=== PATIENT | male | born 2000 ===

== ENCOUNTER → 2022-05-16 11:37 | Outpatient (BNVA) | payer OTHER, SELFPAY | PROVIDERS: PCP Physician Assistant; Visit Provider Internal Medicine | DX: S86.111A Strain of other muscle(s) and tendon(s) of posterior muscle group at lower leg level, right leg, initial encounter (principal); W17.89XA Other fall from one level to another, initial encounter | CPT/HCPCS: 99202 ==

== ENCOUNTER → 2022-05-17 15:06 | Outpatient (BNVA) | payer OTHER, SELFPAY | PROVIDERS: PCP Physician Assistant; Visit Provider Internal Medicine | DX: S86.111A Strain of other muscle(s) and tendon(s) of posterior muscle group at lower leg level, right leg, initial encounter (principal); W17.89XA Other fall from one level to another, initial encounter | CPT/HCPCS: 99213 ==

== ENCOUNTER → 2024-12-25 08:16 | Outpatient (BNVA) | payer OTHER, SELFPAY | PROVIDERS: PCP Physician Assistant; Visit Provider Physician Assistant | DX: Z00.00 Encounter for general adult medical examination without abnormal findings (principal); H93.13 Tinnitus, bilateral; E66.811 Obesity, class 1 | CPT/HCPCS: 96127 ==

== ENCOUNTER 2024-12-27 08:50 | Outpatient (REF) | payer OTHER, SELFPAY ==
--- OUTSIDE RECORDS SUMMARY | 2024-12-27 09:08 | XMS_ITS ---
Author Name [facility] Organization Unknown History of Medication Use Medication Directions Dispensed Refills Start Date End Date Stat No medication inform ation recorded active Problems Problem Status Onset Date Problem Type Date of Resoluti on Source Low back pain, unspecified active 2024-02-04 ProblemAct [facility] Viral intestinal infection, unspecified active 2024-02-05 ProblemAct [facility] Diarrhea, unspecified active 2024-02-04 ProblemAct [facility]
[2024-12-27 09:40] LABS: Hematocrit 47.9 % (42.0-52.0); Hemoglobin 16.1 g/dl (14.0-18.0); Mean Corpuscular HGB Conc 33.6 g/dl (31.0-36.0); Mean Corpuscular Hemoglobin 29.1 pg (27.0-33.0); Mean Corpuscular Volume 86.6 fL (80.0-98.0); Platelet Count 163 X10*3/uL (160-400); Red Blood Count 5.53 X10*6/uL (4.60-5.80); Red Cell Distribution Width 12.2 % (11.0-16.0); White Blood Count 6.1 X10*3/uL (4.8-10.8)
[2024-12-27 10:10] LABS: Alanine Aminotransferase 19 U/L (0-40); Albumin Level 4.4 g/dL (3.5-5.0); Alkaline Phosphatase 74 U/L (39-117); Anion Gap 12 (12-20); Aspartate Amino Transferase 28 U/L (5-37); Bilirubin Total 0.6 mg/dL (0.0-1.0); Blood Urea Nitrogen 19 mg/dL (9-16); Calcium 9.7 mg/dL (8.4-10.2); Carbon Dioxide 28 mmol/L (22-29); Chloride 105 mmol/L (96-108); Estimated Glomerular Filt Rate > 60; Glucose Fasting 86 mg/dL (60-99); Potassium 4.7 mmol/L (3.3-5.1); Sodium 140 mmol/L (135-145); Total Protein 7.4 g/dL (6.5-8.0)
== END 2024-12-27 08:51 | disposition home or self-care (01) ==
LOC: HO.LAB 08:50
PROVIDERS: PCP Physician Assistant; Visit Provider Physician Assistant
DX: Z13.1 Encounter for screening for diabetes mellitus (principal)
CPT/HCPCS: 36415; 80053; 85027

== ENCOUNTER 2025-11-17 13:47 | Outpatient (AMB) | payer OTHER, SELFPAY ==
--- NOTE | 2025-11-17 13:50 | A.OFFPC_ITS ---
Vital Signs 11/17/25 13:51 Height 5 ft 7 in Weight 231 lb 4 oz BMI 36.2 BP 120/68 Blood Pressure Location Lt brachial Position Sitting Respiration 12 Pulse 74 Pulse Source Pulse Oximeter Temp 97.2 F Temp Source Tympanic Pulse Oximetry (%) 99 Oxygen Delivery Method Room Air Intake Visit [facility]: [facility] Allergies amoxicillin (AMOXICILLIN) Allergy (Mild, Verified 11/17/25 13:54) RASH Medication List - Last Reconciled 11/17/25 by Addie Miller MD No Known Home Meds Tobacco use date assessed: 12/25/24 Dental Screening Dental Screen Date: 12/25/24 HPI HPI Comments History of Present Illness Details The patient is a 25 year old male presenting for a general check-up and to request laboratory studies. He was last seen for an annual physical in November of this year, and his labs at that time were normal. Since his last visit, he has experienced some weight gain. The patient has a history of significant weight loss, having previously reduced his weight from 260 lbs to 170 lbs by modifying his diet and maintaining a high level of physical activity. He currently goes to the gym and reports occasional associated joint pain or soreness, which he considers normal. [facility] Surgical History History of tonsillectomy History of appendectomy Family History (Updated 12/25/24 @ 08:37 by Kwasi Lund PA-C) Father Hodgkin lymphoma Paternal Grandmother Bone cancer Social History (Updated 12/25/24 @ 08:37 by Kwasi Lund PA-C) Housing: House Alcohol intake: current Alcohol intake frequency: a few times a week Alcohol type: beer Patient Tobacco Use Status: Former Tobacco user Tobacco use type: Cigarette e-Cigarette/Vaping Use: Never Used Second Hand Smoke Exposure: Yes service: No Current occupational status: employed Current occupation: [employer] Cognitive needs: No Hearing needs: Yes Vision needs: No Questionnaire Thrive Questionnaire Date Thrive assessed: 12/25/24 I am a: Patient What is your living situation today?: I have a steady place to live Within the past 12 months, did the food you bought not last and you didn't have the money to get more?: Never true Within the past 12 months, did you worry whether your food would run out before you got money to buy more?: Never true Do you have trouble paying for medicines?: No Do you have trouble getting transportation to medical appointments?: No Do you have trouble paying your heating and electricity bill?: No Do you have trouble taking care of your child, family member or friend?: No Do you have trouble with day-to-day activities such as bathing, preparing meals, shopping, managing finances, etc.?: No Are you currently unemployed and looking for a job?: No Are you interested in more education?: Yes Currently or been in a relationship where the following occur: No concerns reported THRIVE Score: 0 DEE-7 AMB Questionnaire DEE-7 Date DEE - 7 assessed: 12/25/24 Source: Developed by Drs. Silvestre Pina, Ashleigh Gloria, Todd Edgar and colleagues, with an educational susannah from [employer]. Review of Systems Const Details: Positives besides what was mentioned in HPI are in BOLD Constitutional: No Weight Change, No Fever, No Chills, No Night Sweats, No Fatigue, No Malaise ENT/Mouth: No Hearing Changes, No Ear Pain, No Nasal Congestion, No Sinus Pain, No Hoarseness, No sore throat, No Rhinorrhea, No Swallowing Difficulty Eyes: No Eye Pain, No Swelling, No Redness, No Foreign Body, No Discharge, No Vision Changes Cardiovascular: No Chest Pain, No SOB, No PND, No Dyspnea on Exertion, No Orthopnea, No Claudication, No Edema, No Palpitations Respiratory: No Cough, No Sputum, No Wheezing, No Smoke Exposure, No Dyspnea Gastrointestinal: No Nausea, No Vomiting, No Diarrhea, No Constipation, No Pain, No Heartburn, No Anorexia, No Dysphagia, No Hematochezia, No Melena, No Flatulence, No Jaundice Genitourinary: No Dysmenorrhea, No DUB, No Dyspareunia, No Dysuria, No Urinary Frequency, No Hematuria, No Urinary Incontinence, No Urgency, No Flank Pain, No Urinary Flow Changes, No Hesitancy Musculoskeletal: No Arthralgias, No Myalgias, No Joint Swelling, No Joint Stiffness, No Back Pain, No Neck Pain, No Injury History Skin: No Skin Lesions, No Pruritis, No Hair Changes, No Breast/Skin Changes, No Nipple Discharge Neuro: No Weakness, No Numbness, No Paresthesias, No Loss of Consciousness, No Syncope, No Dizziness, No Headache, No Coordination Changes, No Recent Falls Psych: No Anxiety/Panic, No Depression, No Insomnia, No Personality Changes, No Delusions, No Rumination, No SI/HI/AH/VH, No Social Issues, No Memory Changes, No Violence/Abuse Hx., No Eating Concerns Heme/Lymph: No Bruising, No Bleeding, No Transfusions History, No Lymphade nopathy Endocrine: No Polyuria, No Polydipsia, No Temperature Intolerance Physical exam (Primary Care) Vital Signs: Last Vital Signs Temp 97.2 F 11/17/25 13:51 Pulse 74 11/17/25 13:51 Resp 12 11/17/25 13:51 BP 120/68 11/17/25 13:51 Pulse Ox 99 11/17/25 13:51 Oxygen Delivery Method Room Air 11/17/25 13:51 BMI result Body Mass Index 36.2 Tobacco/Smoking Status: Tobacco use Status Tobacco use date assessed 12/25/24 11/17/25 13:54 Patient Tobacco Use Status Former Tobacco user 11/17/25 13:54 Tobacco use type Cigarette 11/17/25 13:54 e-Cigarette/Vaping Use Never Used 11/17/25 13:54 Thrive Assessment: Date of Thrive Assessment Date Thrive assessed 12/25/24 11/17/25 13:54 Currently or been in a relationship where the following occur: No concerns reported Const Other: Pertinent findings are in BOLD GENERAL APPEARANCE NAD, activity normal for age, well developed/ well nourished, no cyanosis, pallor, or diaphoresis. EYES lids/conjunctiva normal. EARS/NOSE/THROAT Mucous membranes moist, nares normal, lips/teeth normal uvula midline without oral pharyngeal erythema, exudate or swelling TMs normal bilaterally. No lymphangitis/lymphedema. HEAD/NECK normocephalic atraumatic, no facial trauma, neck is supple. RESPIRATORY respiratory effort normal, speaks in full sentences, no tripod position, no accessory muscle use. Lungs clear to auscultation without rhonchi, wheezes, rales CARDIAC Regular rate and rhythm, no edema. ABDOMINAL Soft, ND/NT. No evidence of fluid wave. No pulsatile masses on exam, rebound tenderness, Valiente sign or pain over Mcburney's point. MUSCLES/EXTREMITIES No abnormal range of motion, no swelling. SKIN Warm, pink and dry. No rashes, dermatoses, petechiae or lesions. NEUROLOGICAL Speech is clear and appropriate. Normal level of consciousness. Gait and coordination are normal. 5/5 strength in all extremities. PSYCH Normal mood and affect. Judgement/competence is appropriate Coding Level of Care Code Est Pt Level 4 (05728) Diagnoses Annual physical exam Z00.00 Class 1 obesity E66.811 Screening for STD (sexually transmitted disease) Z11.3 Bloating R14.0 Time Spent (min) 30 Assessment & Plan Assessment & Plan (1) Annual physical exam: Code(s): Z00.00 - Encounter for general adult medical examination without abnormal findings Category: Medical Plan: CBC, CMP, Lipid panel, A1C, TSH w T4, vit D. Ordered. Shingles 2 doses when >50 yo. At 50. COVID: two doses. Completed. Pneumococcal: >50 yo. 18-49 with CKD, lung disease, weakened immune system, Heart disease, DM, cochlear implant. At 50. Flu vaccine: Will get it from retail pharmacy. Tdap: every 10 years. Last done in 2022. NExt due in 2032. Colonoscopy: 45-75. At 45. AAA: 65 -75. At [address]. CT lun - 80. NI. PSA: 50 -70 every two years. At 50. HIV: Ordered. HCV: Ordered. (2) Class 1 obesity: Code(s): E66.811 - Obesity, class 1 Category: Medical Plan: - The patient expressed concern about recent weight gain. - A discussion on dietary management for weight loss was conducted, with a recommendation to try an elimination diet. - It was advised to start by removing gluten and sugars to observe effects on weight, energy, and bloating. - The importance of diet over exercise for initial weight loss was emphasized. - To rule out metabolic causes, orders will be placed for a CBC, CMP, A1c, lipid panel, and thyroid studies. (3) Screening for STD (sexually transmitted disease): Code(s): Z11.3 - Encounter for screening for infections with a predominantly sexual mode of transmission Category: Medical Plan: I ordered STD screening panel which includes HIV, HBV, HCV, Syphilis, UA and reflex microscopy, CT NG PCR. (4) Bloating: Code(s): R14.0 - Abdominal distension (gaseous) Category: Medical Plan: - The patient reports experiencing some bloating. - It was explained that bloating can be a sign of food intolerance. - The recommended dietary changes, particularly the elimination of gluten, are expected to help identify triggers and alleviate this symptom. Plan I addressed the patient's request for routine labs and a sexual health screening. I confirmed that orders would be placed for a complete metabolic panel, complete blood count, A1c, lipid panel, thyroid studies, as well as tests for Hepatitis B/C, HIV, syphilis, chlamydia, and gonorrhea. We had an extensive discussion about his recent weight gain. I proposed an alternative dietary approach focused on eliminating food categories to identify what his body reacts to, noting that bloating can be a perkins indicator. I recommended he start by excluding gluten and sugars from his diet and monitor the effects. I emphasized that diet is a more critical component for weight loss than exercise, especially in the initial phase. The patient understood and was receptive to this approach. Orders: Orders Hepatitis B Core Antibody Today Z00.00 - Encounter for general adult medical examination without abnormal findings Hepatitis B Surface Antigen Today Z00.00 - Encounter for general adult medical examination without abnormal findings Hepatitis C Antibody Reflex Today Z00.00 - Encounter for general adult medical examination without abnormal findings Comprehensive Met. Panel Today Z00.00 - Encounter for general adult medical examination without abnormal findings Hemoglobin A1c Today Z00.00 - Encounter for general adult medical examination without abnormal findings TSH reflex Free T4 Today Z00.00 - Encounter for general adult medical examination without abnormal findings CT NG by PCR Urine Today Z00.00 - Encounter for general adult medical examination without abnormal findings Hepatitis B Surface Antibody Today Z00.00 - Encounter for general adult medical examination without abnormal findings HIV Ab/Ag Today Z00.00 - Encounter for general adult medical examination without abnormal findings UA and rflx microscopic Today Z00.00 - Encounter for general adult medical examination without abnormal findings Syphilis Screen Today Z00.00 - Encounter for general adult medical examination without abnormal findings Complete Blood Count no Diff Today Z00.00 - Encounter for general adult medical examination without abnormal findings Lipid Panel Today Z00.00 - Encounter for general adult medical examination without abnormal findings
[2025-11-17 13:51] VITALS: BP 120/68; PULSE 74; RESP 12; TEMP 36.2; O2SAT 99; BMI 36.2
--- OUTSIDE RECORDS SUMMARY | 2025-11-17 17:14 | XMS_ITS ---
Author Name [facility] Organization Unknown History of Medication Use Medication Directions Dispensed Refills Start Date End Date Stat us No medication inform ation recorded active Problems Problem Status Onset Date Problem Type Date of Resoluti on Source Diarrhea, unspecified active 2024-02-04 ProblemAct [facility] Viral intestinal infection, unspecified active 2024-02-05 ProblemAct [facility] Low back pain, unspecified active 2024-02-04 ProblemAct [facility] Care Team Organization Name Specialty Phone Email Start Date End Da te [facility] 02/04/2024 07/29/2025 [facility] 02/04/2024
== END 2025-11-17 15:25 | disposition home or self-care (01) ==
LOC: HO.HMCH 13:48
PROVIDERS: PCP Physician Assistant; Visit Provider Internal Medicine
DX: Z00.00 Encounter for general adult medical examination without abnormal findings (principal); E66.811 Obesity, class 1; Z11.3 Encounter for screening for infections with a predominantly sexual mode of transmission; R14.0 Abdominal distension (gaseous); Z68.36 Body mass index [BMI] 36.0-36.9, adult